=== PATIENT | female | born 1990 | race Caucasian/White ===

== ENCOUNTER 2019-04-16 06:20 | Outpatient (CLI) | payer MEDICAID ==
[~2019-04-16] VITALS: Ht 171.4 cm; Wt 70.5 kg
--- NOTE | 2019-04-16 06:10 | NUR ---
NADIA RAYO presented to unit via from ED, accompanied by FAMILY , with c/o CONTRACTIONS. NADIA RAYO weighed, gowned, voided, and to bed. EFHM and TOCO applied, VS taken. NADIA RAYO oriented to bed controls, call light, TV, heat, and A/C controls.
[2019-04-16 06:20] VITALS: BP 129/80
[2019-04-16 07:20] VITALS: BP 109/64
--- NOTE | 2019-04-16 07:29 | NUR ---
Dr. Diego notified of patient's arrival, complaints, EFM, and exams. New orders received.
--- NOTE | 2019-04-16 08:18 | NUR ---
Dr. Diego updated on patient's status. New orders received.
[2019-04-16] MEDS ORDERED: morphine INJ 4 MG/ML 1 ML (VIAL/SYRINGE) IM PRN (08:30)
--- NOTE | 2019-04-16 10:00 | NUR ---
Dr. Diego updated on patient's status. New orders received.
--- NOTE | 2019-04-16 10:03 | NUR ---
Plan of care reviewed with patient and family. Patient and family have opted for discharge home. Will prepare the paperwork.
[2019-04-16] MEDS ORDERED: RT-ALBUINH INH (10:07)
--- NOTE | 2019-04-16 10:12 | NUR ---
Discharge instructions and medications reviewed with patient both written and verbally. Patient verbalizes understanding and questions answered.
--- NOTE | 2019-04-16 10:15 | NUR ---
Patient discharged at this time and ambulated from the unit accompanied by family. No signs or symptoms of distress noted.
[2019-04-17] MEDS ORDERED: hydrOXYzine (VISTARIL) 25 MG capsule/tablet ONE (00:19)
== END 2019-04-16 10:07 | disposition home or self-care (01) ==
LOC: WSo 06:20 → LDRP 06:20 → WSo 10:07 → LDRP 10:15
PROVIDERS: ATTEND Family Medicine
DX: O47.1 False labor at or after 37 completed weeks of gestation (principal); Z3A.38 38 weeks gestation of pregnancy
CPT/HCPCS: 96372; 99214

== ENCOUNTER 2019-04-16 23:40 | Outpatient (CLI) | payer MEDICAID ==
[~2019-04-16] VITALS: Ht 171.4 cm; Wt 70.5 kg
[~2019-04-16 23:40] MED LIST: RT-ALBUINH INH
--- NOTE | 2019-04-16 23:40 | NUR ---
NADIA RAYO presented to unit via from ED, accompanied by FAMILY, with c/o . NADIA RAYO weighed, gowned, voided, and to bed. EFHM and TOCO applied, VS taken. NADIA RAYO oriented to bed controls, call light, TV, heat, and A/C controls.
[2019-04-17] VITALS: BP 122/82
[2019-04-17] MEDS ORDERED: hydrOXYzine (VISTARIL/ATARAX) 25 MG capsule/tablet PO ONE ×2 (00:30)
--- NOTE | 2019-04-17 00:33 | NUR ---
Pt agrees with POC. Pt drinking H2O at this time and ready to go home with . Pt educated on the medication that she is taking and will take at home. Pt has no further questions at this time
[2019-04-17 00:52] VITALS: BP 122/82
--- NOTE | 2019-04-17 01:19 | NUR ---
Ramy warren called and no answer, will leave order for Dr Diego to call in.
--- NOTE | 2019-04-19 12:01 | Physician Query-Final Dx ---
MARIANNA HERNANDEZ 04/19/19 1201: Final Diagnosis Give Final Diagnosis Please give Final Diagnosis Dr Taylor Please give a final diagnosis. Also please indicate the weeks of gestation. thank you ISSAC GALLARDO MD 04/25/19 1110: Final Diagnosis Give Final Diagnosis 38 weeks gestation Contractions without active labor MARIANNA HERNANDEZ Apr 19, 2019 12:01 ISSAC GALLARDO MD Apr 25, 2019 11:10
== END 2019-04-17 00:52 | disposition home or self-care (01) ==
LOC: WSo 23:40 → LDRP 23:49 → WSo 04-17 00:52
PROVIDERS: ATTEND Family Medicine
DX: O47.1 False labor at or after 37 completed weeks of gestation (principal); Z3A.38 38 weeks gestation of pregnancy
CPT/HCPCS: 99213

== ENCOUNTER 2019-04-20 04:01 | Inpatient (IN) | payer MEDICAID ==
[2019-04-20] VITALS (46 sets, daily range): BP systolic 97–161; BP diastolic 54–99
[~2019-04-20] VITALS: Ht 171.4 cm; Wt 70.5 kg
--- NOTE | 2019-04-20 04:05 | NUR ---
NADIA RAYO presented to unit via ambulatory from ED, accompanied by staff and mother, with c/o CONTRACTIONS. NADIA RAYO weighed, gowned, voided, and to bed. EF and TOCO applied, VS taken. NADIA RAYO oriented to bed controls, call light, TV, heat, and A/C controls.
[2019-04-20 04:22] LABS: BILIRUBIN,URINE NEGATIVE (NEGATIVE); CLARITY,URINE CLEAR; COLOR,URINE YELLOW; GLUCOSE, URINE (UA) NEGATIVE (NEGATIVE); KETONES,URINE NEGATIVE (NEGATIVE); LEUKOCYTE ESTERASE ,URINE 2+ (NEGATIVE); NITRITE,URINE NEGATIVE (NEGATIVE); PH,URINE 7 (5-9); PROTEIN,URINE NEGATIVE (NEGATIVE); UROBILINOGEN,URINE NORMAL (NORMAL)
[2019-04-20] MEDS ORDERED: HYDR25CA PO (04:22)
[2019-04-20] MEDS ORDERED: PREN1TAB79 PO (04:22)
[2019-04-20 04:28] LABS: BACTERIA,URINE TRACE /HPF; WBC,URINE 0-2 /HPF
[2019-04-20] MEDS ORDERED: D5 LR IV SOLUTION 1,000 ML IV SCH (07:21)
[2019-04-20] MEDS ORDERED: MINERAL OIL CONCENTRATE 99.9% 15 ML UDC TOP PRN (07:30)
--- OUTSIDE RECORDS SUMMARY | 2019-04-20 08:08 | XMS REPORT | Continuity of Care Document ---
Author Organization Unknown Address Unknown Allergies There is no data. Medications There is no data. Problems There is no data. Procedures There is no data. Results Test Result Range CBC - 02/03/19 09:40 WHITE BLOOD CELL COUNT 5.6 Thousand/uL 3.8-10.8 RED BLOOD CELL COUNT 3.83 Million/uL 3.80-5.10 HEMOGLOBIN 9.8 g/dL 11.7-15.5 HEMATOCRIT 30.5 % 35.0-45.0 MCV 79.6 fL 80.0-100.0 MCH 25.6 pg 27.0-33.0 MCHC 32.1 g/dL 32.0-36.0 RDW 13.0 % 11.0-15.0 PLATELET COUNT 249 Thousand/uL 140-400 MPV 9.5 fL 7.5-12.5 ABSOLUTE NEUTROPHILS 3651 cells/uL 6988-0869 ABSOLUTE LYMPHOCYTES 1372 cells/uL 850-3900 ABSOLUTE MONOCYTES 476 cells/uL 200-950 ABSOLUTE EOSINOPHILS 73 cells/uL 15-500 ABSOLUTE BASOPHILS 28 cells/uL 0-200 NEUTROPHILS 65.2 % NRG LYMPHOCYTES 24.5 % NRG MONOCYTES 8.5 % NRG EOSINOPHILS 1.3 % NRG BASOPHILS 0.5 % NRG CULTURE, GROUP B STREP WITH SUSCEPTIBILITY - 04/04/19 14:39 CULTURE, GROUP B STREP WITH SUSCEPTIBILITY SEE NOTE NRG Encounters ACCT No. Visit Date/Time Discharge Status Pt. Type Provider Facility Loc./Unit Complaint [id number] 04/14/2019 10:30:00 04/14/2019 23:59:59 CLS Outpatient ANALI BRADY [facility] [id number] 04/04/2019 14:00:00 Document Registration [id number] 02/03/2019 08:45:00 Document Registration
--- OUTSIDE RECORDS SUMMARY | 2019-04-20 08:08 | XMS REPORT ---
Author Author BRADYANALI [facility] Address [address] [place] [address] Care Team Providers Care Paddock Judge Name Role Phone ANALI BRADY Unavailable PROBLEMS Type Condition ICD9-CM Code OIO45-VG Code Onset Dates Condition Status SNOMED Code Problem Supervision of other normal , antepartum V22.1 February, 0 76434231 Problem Supervision of other normal , antepartum Z34.80 February, 0 44011626 Problem Normal labor 650 Jun, 0 30704115 Problem Normal labor O80 Jun, 0 [id number] ALLERGIES No Known Allergies ENCOUNTERS Encounter Location Date Diagnosis [address] [address] Jan, [address] [address] Dec, Supervision of other normal , antepartum Z34.[address] [address] Dec, Supervision of other normal , antepartum Z34.80 and 21 weeks gestation of Z3A.[address] [address] Nov, [facility] [id number] [address] Nov, [address] [address] Nov, [address] [address] Nov, [address] [address] Nov, Supervision of other normal , antepartum Z34.80 [facility] [id number] [address] Sep, [facility] [address] [facility] [id number] [address] February, [facility] [address] [facility] [id number] [address] February, [facility] [address] [facility] [id number] [address] Jun, IMMUNIZATIONS No Known Immunizations SOCIAL HISTORY Never Assessed REASON FOR VISIT OB f/u PLAN OF CARE Activity Details Follow Up 4 Weeks Reason:OBV VITAL SIGNS Height 67 in 2018-12-20 Weight 136 lbs 2018-12-20 BMI 21.301 kg/m2 2018-12-20 Blood pressure systolic 101 mmHg 2018-12-20 Blood pressure diastolic 60 mmHg 2018-12-20 MEDICATIONS Medication Instructions Dosage Frequency Start Date End Date Duration Status Keflex 500 MG Orally every 12 hrs 1 capsule Nov, 10 day(s) Active Keflex 500 MG Orally every 12 hrs 1 capsule h Nov, 10 day(s) Active 28-0.8 MG Orally Once a day 1 tablet 24h 30 day(s) Active ProAir HFA 108 (90 Base) MCG/ACT Inhalation every 6 hrs 2 puffs as needed 6h Active RESULTS No Results PROCEDURES No Known procedures INSTRUCTIONS MEDICATIONS ADMINISTERED No Known Medications MEDICAL (GENERAL) HISTORY Type Description Date Medical History astma Hospitalization History childbirth only
--- NOTE | 2019-04-20 08:12 | History & Physical-OB ---
OB - Chief Complaint & HPI Date/Time Date of Admission: Date of Admission: Apr 20, 2019 at 07:22 Date seen by a Provider: Apr 20, 2019 Time Seen by a Provider: 08:00 Chief Complaint/History OB-Reason for Admission/Chief: Onset of Labor Hx : 6 Hx Para: 4 Gestational Age in Weeks: 38 Gestational Age in Days: 5 Indication for induction: history of rapid labor Admission Nurse Assessment Rev: Yes Allergies and Home Medications Allergies Coded Allergies: No Known Drug Allergies (Unverified , 04/20/19) Home Medications Albuterol Sulfate 1 Puff Puff, 2 PUFF INH Q4H, (Reported) 1 PUFF = 90 MCG Hydroxyzine Pamoate 25 Mg Capsule, 25 MG PO NEEDED, (Reported) Vit W-Ca,Fe,FA(<1 mg) 1 Each Tablet, 1 EACH PO DAILY, (Reported) Patient Home Medication List Home Medication List Reviewed: Yes OB - History Hx of Present Care: Yes Ultrasounds: Normal mid trimester US Obstetrical Complications: None Medical Complications: None Patient Past Medical History previously healthy Social History/Family History Recent Infectious Disease Expo: No OB - Admission Exam Physical Exam Vitals: Vital Signs 04/20/19 05:00 Temp 98.2 Pulse 118 Resp 18 B/P (MAP) 131/81 (98) O2 Delivery Room Air HEENT: NCAT Heart: Rhythm Normal Lungs: Clear Abdomen: Gravid Extremities: Normal Reflexes: Normal Cervical Dilatation: 4cm Effacement: 50% Station: -3 Membranes: Ruptured Amniotic Fluid: Clear Heart Rate: 130's Accelerations: Accelerations Present Decelerations: No Decelerations Short Term Variability: Present Viticulturist Variability: Average (6-25) Contractions on Admission: < 5 Minutes Apart Labs Laboratory Tests Test 04/20/19 04:10 Range/Units Urine Color YELLOW Urine Clarity CLEAR Urine pH 7 5-9 Urine Specific [place] 1.005 L 1.016-1.022 Urine Protein NEGATIVE NEGATIVE Urine Glucose (UA) NEGATIVE NEGATIVE Urine Ketones NEGATIVE NEGATIVE Urine Nitrite NEGATIVE NEGATIVE Urine Bilirubin NEGATIVE NEGATIVE Urine Urobilinogen NORMAL NORMAL MG/DL Urine Leukocyte Esterase 2+ H NEGATIVE Urine RBC (Auto) NEGATIVE NEGATIVE Urine RBC NONE /HPF Urine WBC 0-2 /HPF Urine Squamous Epithelial Cells 5-10 /HPF Urine Crystals NONE /LPF Urine Bacteria TRACE /HPF Urine Casts NONE /LPF Urine Mucus NEGATIVE /LPF Urine Culture Indicated NO OB - Assessment/Plan/Diagnosis Assessment Assessment: active labor Admission Dx Normal labor at 38 weeks 5 days. Admission Status: Inpatient Order (span 2 midnights) Reason for Inpatient Admission: Normal labor. Plan Plan: Expectant Management Induction Method: ANALI MOLINA MD Apr 20, 2019 08:12
[2019-04-20] MEDS ORDERED: SUFENTA 0.6MCG/ML BUPIVA 0.125 100 ML ONE (08:14)
[2019-04-20 08:28] LABS: BASOPHILS % (AUTO) 0 % (0-10); EOSINOPHILS # (AUTO) 0.1 10^3/uL (0.0-0.3); EOSINOPHILS % (AUTO) 1 % (0-10); HEMATOCRIT 31 % (35-52); HEMOGLOBIN 9.7 G/DL (11.5-16.0); LYMPHOCYTES # (AUTO) 1.8 X 10^3 (1.0-4.0); LYMPHOCYTES % (AUTO) 31 % (12-44); MEAN CORPUSCULAR HEMOGLOBIN 22 PG (25-34); MEAN CORPUSCULAR HGB CONC 31 G/DL (32-36); MEAN CORPUSCULAR VOLUME 71 FL (80-99); MONOCYTES # (AUTO) 0.4 X 10^3 (0.0-1.0); MONOCYTES % (AUTO) 7 % (0-12); NEUTROPHILS # (AUTO) 3.6 X 10^3 (1.8-7.8); NEUTROPHILS % (AUTO) 61 % (42-75); PLATELET COUNT 222 10^3/uL (130-400); RED CELL DISTRIBUTION WIDTH 16.1 % (10.0-14.5); WHITE BLOOD COUNT 5.9 10^3/uL (4.3-11.0)
[2019-04-20] MEDS ORDERED: BUPIVACAINE 0.25% 30 ML (SENSORCAINE) VIAL ONE (08:36)
[2019-04-20] MEDS ORDERED: fentaNYL INJECTION 100 MCG/2 ML AMP ONE (08:36)
--- NOTE | 2019-04-20 08:42 | NUR ---
Heidy FOX CRNA here for epidural placement. Procedure explained, consent reviewed and signed by anesthesia. Questions answered to patient's satisfaction. Time out taken to verify correct patient/procedure. 0844 Patient up to side of bed, assisted into sitting position. 0847 Betadine prep done x3 and sterile drape applied. 0849 Local done, see anesthesia record. 0853 Test dose given, see anesthesia record for drug and dosage. Epidural catheter secured in place. Epidural placement complete. 0910 Assisted back into bed, monitors adjusted. Epidural dosed, see anesthesia record. Epidural of Sufenta/Bupvicaine @12cc/hr stated per pump. Patient tolerated procedure well.
[2019-04-20] MEDS ORDERED: PANTOPRAZOLE 20 MG TABLET (PROTONIX) PO SCH (09:00)
[2019-04-20] MEDS ORDERED: ONDANSETRON 4 MG/2 ML (SDV) Z0FRAN ONE (09:08)
[2019-04-20] MEDS ORDERED: OXYTOCIN/NORMAL SALINE 500 ML IV ONE (09:44)
[2019-04-20] MEDS: OXYTOCIN/NORMAL SALINE 500 ML IV SCH ×2 (09:57→13:51)
[2019-04-20] MEDS ORDERED: LACTATED RINGERS 1,000 ML IV ONE ×2 (10:03)
[2019-04-20] MEDS ORDERED: ONDANSETRON 4 MG/2 ML (SDV) Z0FRAN IV PRN (10:15)
[2019-04-20] MEDS ORDERED: EPIDURAL (SUFENTA 0.6MCG/ML BUPIVA 0.125%) 100 ML BAG EPI PRN (10:15)
[2019-04-20] MEDS ORDERED: NALOXONE 0.4 MG/ML 1 ML (NARCAN) VIAL IV PRN (10:15)
--- NOTE | 2019-04-20 13:29 | OB Labor & Delivery Record ---
Vag Delivery Note Vag Delivery Note Date of Delivery: 04/20/19 Preoperative Diagnosis: Roxy Lawton is a (28 /Para 6 / 4, Gestational Age (wks)38with [5 days] Postoperative Diagnosis: Same Surgeon: ANALI BRADY Boiling House Oiler: [] Anesthesia: [epidural] Delivery Type: [] Findings: [] Viable [female] , apgars [8/9] Lacerations: Intact placenta with 3 vessel cord. No nuchal cord, body cord or shoulder dystocia Estimated Blood Loss: [200] ml Complications: None Condition: Stable Description of Procedure: The patient is a 28 year old female who presented [in labor]. She was admitted and informed consent was obtained. Her labor course was remarkable for [nothing] She progressed to complete dilatation and began to push. She was then set up for delivery. The infant's head was delivered atraumatically in the [OA] position. The shoulders and remainder of the 's body were then delivered without difficulty. Upon delivery, the head was held below the level of the perineum and the mouth and nares were bulb suctioned. The cord was doubly clamped and cut after 60 seconds and placed on maternal abdomen. An intact placenta with 3-vessel cord delivered via Fox and there was found to be minimal bleeding.~ Vigorous fundal massage was performed and the fundus was found to be firm. IV oxytocin was given. Examination of the vagina and perineum revealed no lacerations. Following the repair, sponge, instrument and needle counts were correct. Mom and baby were both in stable condition in the labor suite. Vitals - Labs Vital Signs - I&O Vital Signs Date Time Temp Pulse Resp B/P (MAP) Pulse Ox O2 Delivery O2 Flow Rate FiO2 04/20/19 12:00 98.2 83 18 114/78 (90) 96 Room Air 04/20/19 11:45 103 18 108/76 (87) 99 Room Air 04/20/19 11:30 98.3 94 18 115/70 (85) 99 Room Air 04/20/19 11:15 97 18 108/61 (77) 97 Room Air 04/20/19 11:00 99 18 104/58 (73) 98 Room Air 04/20/19 10:45 88 18 106/58 (74) 96 Room Air 04/20/19 10:30 87 18 111/59 (76) 98 Room Air 04/20/19 10:15 83 18 97/54 (68) 96 Room Air 04/20/19 10:00 97.8 92 18 111/61 (78) Room Air 04/20/19 09:53 88 18 107/66 (80) Room Air 04/20/19 09:47 99 18 108/69 (82) 99 Room Air 04/20/19 09:45 96 18 108/70 (83) 96 Room Air 04/20/19 09:39 98 18 108/64 (79) Room Air 04/20/19 09:31 94 18 131/71 (91) 98 Room Air 04/20/19 09:30 124 18 112/68 (83) 99 Room Air 04/20/19 09:25 76 18 116/69 (85) 98 Room Air 04/20/19 09:22 110 18 125/75 (92) 99 Room Air 04/20/19 09:19 79 18 133/65 (87) Room Air 04/20/19 09:16 97 18 126/70 (88) 100 Room Air 04/20/19 09:15 94 18 133/65 (87) 100 Room Air 04/20/19 09:09 95 18 117/82 (94) 99 Room Air 04/20/19 09:06 99 18 136/76 (96) 99 Room Air 04/20/19 09:03 104 18 111/76 (88) Room Air 04/20/19 09:00 113 18 119/81 (94) 100 Room Air 04/20/19 08:57 115 18 121/84 (96) Room Air 04/20/19 08:54 96 18 126/83 (97) 100 Room Air 04/20/19 08:51 106 18 132/82 (99) 99 Room Air 04/20/19 08:48 127 18 130/81 (97) Room Air 04/20/19 08:45 127 18 139/75 (96) 100 Room Air 04/20/19 08:30 98.4 04/20/19 05:00 98.2 118 18 131/81 (98) Room Air Labs Laboratory Tests 04/20/19 04:10: Urine Color YELLOW, Urine Clarity CLEAR, Urine pH 7, Urine Specific [place] 1.005L, Urine Protein NEGATIVE, Urine Glucose (UA) NEGATIVE, Urine Ketones NEGATIVE, Urine Nitrite NEGATIVE, Urine Bilirubin NEGATIVE, Urine Urobilinogen NORMAL, Urine Leukocyte Esterase 2+H, Urine RBC (Auto) NEGATIVE, Urine RBC NONE, Urine WBC 0-2, Urine Squamous Epithelial Cells 5-10, Urine Crystals NONE, Urine Bacteria TRACE, Urine Casts NONE, Urine Mucus NEGATIVE, Urine Culture Indicated NO 04/20/19 08:00: White Blood Count 5.9, Red Blood Count 4.38, Hemoglobin 9.7L, Hematocrit 31L, Mean Corpuscular Volume 71L, Mean Corpuscular Hemoglobin 22L, Mean Corpuscular Hemoglobin Concent 31L, Red Cell Distribution Width 16.1H, Platelet Count 222, Mean Platelet Volume 10.0, Neutrophils (%) (Auto) 61, Lymphocytes (%) (Auto) 31, Monocytes (%) (Auto) 7, Eosinophils (%) (Auto) 1, Basophils (%) (Auto) 0, Neutrophils # (Auto) 3.6, Lymphocytes # (Auto) 1.8, Monocytes # (Auto) 0.4, Eosinophils # (Auto) 0.1, Basophils # (Auto) 0.0 ANALI BRADY MD Apr 20, 2019 13:29
[2019-04-20] MEDS ORDERED: BENZOCAINE/MENTHOL (DERMOPLAST) 56 ML CAN TP PRN (13:30)
[2019-04-20] MEDS ORDERED: MEASLES,MUMPS,RUBELLA 1 EA INJ SQ ONE (13:30)
[2019-04-20] MEDS ORDERED: WITCH HAZEL(TUCKS) 40 EA JAR TOP PRN (13:30)
[2019-04-20] MEDS ORDERED: OXYTOCIN/NORMAL SALINE 500 ML IV SCH (13:30)
[2019-04-20] MEDS ORDERED: TETANUS,DIPTH,PERTUSS P/F (BOOSTRIX) 0.5 ML VIAL IM ONE (13:30)
[2019-04-20] MEDS ORDERED: CATHETER FLUSH 10 ML SYR IV SCH ×2 (14:00)
[2019-04-20] MEDS: IBUPROFEN 600 MG (MOTRIN) TAB PO SCH ×2 (16:43→22:15)
--- NOTE | 2019-04-20 16:55 | NUR ---
REFER TO LABOR FLOW SHEET.
--- NOTE | 2019-04-20 20:36 | NUR ---
Pt resting in bed with infant in her arms, pt educated on risks of co-sleeping and sleeping infant moved to crib.
[2019-04-20] MEDS: DOCUSATE SODIUM 100 MG (COLACE) CAP PO SCH (22:15)
--- NOTE | 2019-04-20 23:48 | NUR ---
Pt resting and requested IV removed. Pt has no complaints at this time.
[2019-04-21 04:13] VITALS: BP 108/59
[2019-04-21] MEDS: IBUPROFEN 600 MG (MOTRIN) TAB PO SCH ×2 (04:13→09:18)
[2019-04-21 05:18] LABS: BASOPHILS % (AUTO) 0 % (0-10); EOSINOPHILS # (AUTO) 0.1 10^3/uL (0.0-0.3); EOSINOPHILS % (AUTO) 1 % (0-10); HEMATOCRIT 27 % (35-52); HEMOGLOBIN 8.1 G/DL (11.5-16.0); LYMPHOCYTES % (AUTO) 30 % (12-44); MEAN CORPUSCULAR HEMOGLOBIN 22 PG (25-34); MEAN CORPUSCULAR HGB CONC 31 G/DL (32-36); MEAN CORPUSCULAR VOLUME 72 FL (80-99); MONOCYTES # (AUTO) 0.4 X 10^3 (0.0-1.0); MONOCYTES % (AUTO) 7 % (0-12); NEUTROPHILS # (AUTO) 4.1 X 10^3 (1.8-7.8); NEUTROPHILS % (AUTO) 62 % (42-75); PLATELET COUNT 192 10^3/uL (130-400); RED CELL DISTRIBUTION WIDTH 16.1 % (10.0-14.5); WHITE BLOOD COUNT 6.6 10^3/uL (4.3-11.0)
--- NOTE | 2019-04-21 08:55 | NUR ---
Dr. Ordoñez here. dismissal orders received.
[2019-04-21 09:18] VITALS: BP 121/73
[2019-04-21] MEDS: DOCUSATE SODIUM 100 MG (COLACE) CAP PO SCH (09:18)
--- NOTE | 2019-04-21 09:18 | NUR ---
initial shift assessment completed, see interventions for further. scheduled medications given, see eMar for further.
--- NOTE | 2019-04-21 09:28 | OB Labor & Delivery Record ---
L&D History Date of Service Date of Service: Apr 21, 2019 History Expected Date of Delivery: Apr 29, 2019 Gestational Age in Weeks: 38 Hx : 6 Hx Para: 4 Complications Events: Routine care Operative Indications (Cesarea: N/A-Vaginal Delivery Intrapartal Events: None L&D Stage1 Monitors and Tracing Monitor Mode: External Heart Rate: 135 Station: -1 Vital Signs VS - Last 72 Hours, by Label 04/20/19 04/20/19 04/20/19 04/20/19 05:00 08:30 08:45 08:48 Temp 98.2 98.4 Pulse 118 127 127 Resp 18 18 18 B/P (MAP) 131/81 (98) 139/75 (96) 130/81 (97) Pulse Ox 100 O2 Delivery Room Air Room Air Room Air 04/20/19 04/20/19 04/20/19 04/20/19 08:51 08:54 08:57 09:00 Pulse 106 96 115 113 Resp 18 18 18 18 B/P (MAP) 132/82 (99) 126/83 (97) 121/84 (96) 119/81 (94) Pulse Ox 99 100 100 O2 Delivery Room Air Room Air Room Air Room Air 04/20/19 04/20/19 04/20/19 04/20/19 09:03 09:06 09:09 09:15 Pulse 104 99 95 94 Resp 18 18 18 18 B/P (MAP) 111/76 (88) 136/76 (96) 117/82 (94) 133/65 (87) Pulse Ox 99 99 100 O2 Delivery Room Air Room Air Room Air Room Air 04/20/19 04/20/19 04/20/19 04/20/19 09:16 09:19 09:22 09:25 Pulse 97 79 110 76 Resp 18 18 18 18 B/P (MAP) 126/70 (88) 133/65 (87) 125/75 (92) 116/69 (85) Pulse Ox 100 99 98 O2 Delivery Room Air Room Air Room Air Room Air 04/20/19 04/20/19 04/20/19 04/20/19 09:30 09:31 09:39 09:45 Pulse 124 94 98 96 Resp 18 18 18 18 B/P (MAP) 112/68 (83) 131/71 (91) 108/64 (79) 108/70 (83) Pulse Ox 99 98 96 O2 Delivery Room Air Room Air Room Air Room Air 04/20/19 04/20/19 04/20/19 04/20/19 09:47 09:53 10:00 10:15 Temp 97.8 Pulse 99 88 92 83 Resp 18 18 18 18 B/P (MAP) 108/69 (82) 107/66 (80) 111/61 (78) 97/54 (68) Pulse Ox 99 96 O2 Delivery Room Air Room Air Room Air Room Air 04/20/19 04/20/19 04/20/19 04/20/19 10:30 10:45 11:00 11:15 Pulse 87 88 99 97 Resp 18 18 18 18 B/P (MAP) 111/59 (76) 106/58 (74) 104/58 (73) 108/61 (77) Pulse Ox 98 96 98 97 O2 Delivery Room Air Room Air Room Air Room Air 04/20/19 04/20/19 04/20/19 04/20/19 11:30 11:45 12:00 12:15 Temp 98.3 98.2 Pulse 94 103 83 89 Resp 18 18 18 18 B/P (MAP) 115/70 (85) 108/76 (87) 114/78 (90) 117/70 (86) Pulse Ox 99 99 96 96 O2 Delivery Room Air Room Air Room Air Room Air 04/20/19 04/20/19 04/20/19 04/20/19 12:30 12:45 13:00 13:15 Pulse 83 92 123 93 Resp 18 18 18 18 B/P (MAP) 114/67 (83) 109/67 (81) 161/69 (99) 130/99 (109) Pulse Ox 97 99 99 O2 Delivery Room Air Room Air Room Air Room Air 04/20/19 04/20/19 04/20/19 04/20/19 13:28 13:42 13:57 14:12 Temp 97.7 97.8 Pulse 97 82 73 68 Resp 18 18 18 18 B/P (MAP) 137/91 (106) 124/73 (90) 128/73 (91) 131/78 (95) O2 Delivery Room Air Room Air Room Air Room Air 04/20/19 04/20/19 04/20/19 04/20/19 14:27 14:42 15:12 15:42 Temp 97.7 Pulse 61 63 53 58 Resp 18 18 18 18 B/P (MAP) 123/76 (92) 127/77 (94) 128/76 (93) 130/73 (92) O2 Delivery Room Air Room Air Room Air Room Air 04/20/19 04/20/19 04/20/19 04/21/19 16:12 20:31 23:46 04:13 Temp 99.2 99.1 97.9 Pulse 58 72 60 62 Resp 18 18 18 18 B/P (MAP) 135/82 (99) 103/64 (77) 110/67 (81) 108/59 (75) Pulse Ox 99 97 98 O2 Delivery Room Air Room Air Room Air Room Air Rupture of Membranes Amniotic Membrane Rupture Time: 0803 Induction/Anesthesia Epidural Cath Placement - Time: 08 L&D Stage2 Monitors and Tracing Monitor Mode: External Heart Rate: 135 Position: Right Occiput Anterior Presentation: Vertex Cord Descript/Complications Cord Vessel Description: 3 Vessels Delivery Type Delivery Method: Spontaneous Vaginal Episiotomy/Perineal Laceration Laceraction(s)/Extensions: No Episiotomy Description: None Condition of Delivery 1 minute Comment: 9 5 minute Comment: 9 Condition of Condition of Infant: Living Exam: No Observed Abnormalities Resuscitation Resuscitation: N/A - Spontaneous Resp L&D Stage3 Pictocin Pitocin Administration mu/min: 6 Pitocin ml/hr: 6 Pitocin Administration Comment: 1123 PITOCIN INCREASED. Placenta Delivery Placenta Delivery: Spontaneous Delivery Summary Summary Estimated blood loss (mL): 250 Attending at delivery: Dr. Brady Condition of Delivery Post Hemorrhage: No ANALI BRADY MD Apr 21, 2019 09:28
[2019-04-21] MEDS ORDERED: IBUP-844 PO (09:30)
--- NOTE | 2019-04-21 09:32 | Discharge Instructions ---
Discharge Inst-Women's Serv Depart Medications New, Converted or Re-Newed RX: Transmitted to Pharmacy Follow Up/Instructions Goal/Follow Up: Dr. brady in 6 weeks Activity Activity: Activity as Tolerated Driving Instructions: You May Drive NO SMOKING: NO SMOKING Nothing Inside Vagina: No Douching, No [place], No Tampons Diet Discharge Diet: No Restrictions Symptoms to Report to : Extremity Discoloration, Bleeding Excessive, Fever Over 101 Degrees F, Urination Difficulty, Vaginal Bleeding Increase For Any Problems or Questions: Contact Your Physician ANALI BRADY MD Apr 21, 2019 09:32
--- NOTE | 2019-04-21 12:38 | Anesthesia-Regional Post-Op ---
Regional Patient Condition Mental Status: Alert, Oriented x3 Circulation: Same as Pre-Op Headache: Absent Sensation: Full Recovery Motor Block: Absent Post Op Complications Complications None Follow Up Care/Instructions Patient Instructions None needed. Anesthesia/Patient Condition Patient is doing well, no complaints, stable vital signs, no apparent adverse anesthesia problems. No complications reported per nursing. VIRY SHEIKH CRNA Apr 21, 2019 12:38
--- NOTE | 2019-04-21 13:32 | NUR ---
dismissal instructions given, verbalizes understanding. reviewed dismissal medication. instructed pt to schedule 6 week PP appointment. signature page signed, placed on chart.
--- NOTE | 2019-04-21 13:34 | NUR ---
Lopez Camargo called into [facility] pharmacy in [place], [place] per pt's request.
--- NOTE | 2019-04-21 16:00 | NUR ---
pt ambulated to private vehicle with this RN and @ side. infant secured in rear facing car seat. pt stable with no sx's of distress noted.
== END 2019-04-21 16:00 | disposition home or self-care (01) | DRG 807 ==
LOC: WSo 04:01 → LDRP 04:02 → WSo 07:21 → LDRP 07:22
PROVIDERS: ADMIT Family Medicine; ATTEND Family Medicine
PROC: 10E0XZZ Delivery of Products of Conception, External Approach (ICD-10-PCS; principal; 2019-04-20)
DX: O99.513 Diseases of the respiratory system complicating pregnancy, third trimester (principal); J45.909 Unspecified asthma, uncomplicated; Z3A.38 38 weeks gestation of pregnancy; Z37.0 Single live birth
CPT/HCPCS: 36415; 81000; 85025; 86762; 86850; 86900; 86901; 99212